=== PATIENT | male | born 1975 | race African-American/Black ===

== ENCOUNTER 2017-04-26 23:35 | Inpatient (IN) ==
[2017-04-27] MEDS ORDERED: ONDANSETRON 4 MG/2 ML VIAL IV STA (00:52)
[2017-04-27] MEDS ORDERED: MORPHINE 2 MG/1 ML SYRINGE IV STA (00:52)
[2017-04-27] MEDS ORDERED: ceFAZolin 2,000 MG in SODIUM CHLORIDE 0.9% 100 ML IV STA (00:53)
[2017-04-27] MEDS ORDERED: DIPH/TET/ACEL PERT BOOSTER VACCINE 0.5 ML VIAL IM ONE (00:54)
[2017-04-27] MEDS ORDERED: MORPHINE 2 MG/1 ML SYRINGE IV PRN (00:55)
[2017-04-27] MEDS ORDERED: ACETAMINOPHEN 325 MG TABLET PO PRN (00:55)
[2017-04-27] MEDS ORDERED: ONDANSETRON 4 MG/2 ML VIAL IV PRN (00:55)
[2017-04-27 01:28] LABS: Basophils % 0.2 % (0.0-0.8); Eosinophils % 0.1 % (0.00-10.9); Hematocrit 43.2 VOL% (42.0-52.0); Immature Granulocytes % 0.2 %; Immature Granulocytes Absolute 0.02 #; Lymphocytes # 1.1 10*3/uL (1.4-4.0); Lymphocytes % 12.7 % (21.2-54.2); Mean Corpuscular HGB Conc 34.7 GM/DL (32-36); Mean Corpuscular Hemoglobin 30 PG (27-34); Mean Corpuscular Volume 87.4 FL (87-102); Mean Platelet Volume 12.3 FL (9.6-12.0); Monocytes # 0.7 10*3/uL (0.11-0.8); Monocytes % 7.5 % (1.7-12.7); Neutrophils % 79.3 % (38.7-73.9); Platelet Count 166 T/CUMM (130-400); Red Blood Count 4.94 MC/CUMM (3.8-5.5); Red Cell Distribution Width 13.5 % (9.3-17.3); White Blood Count 8.8 T/CUMM (4-12)
[2017-04-27] MEDS ORDERED: MORPHINE 2 MG/1 ML SYRINGE ONE (01:36)
[2017-04-27] MEDS ORDERED: ONDANSETRON 4 MG/2 ML VIAL ONE (01:36)
[2017-04-27] MEDS ORDERED: ceFAZolin 1,000 MG VIAL ONE (01:37)
[2017-04-27 02:12] LABS: Albumin 4.2 G/DL (3.4-5.0); Bilirubin,Total 0.4 MG/DL (0.2-1.0); Calcium 8.7 MG/DL (8.5-10.1); Osmolality,Calculated 285.4 MOS/KG (273-304); Potassium 3.9 MMOL/L (3.5-5.1); Total Protein 7.6 G/DL (6.4-8.3)
[2017-04-27] MEDS: DEXTROSE 5% LACTATED RINGERS 1,000 ML IV SCH ×2 (03:18→13:47)
[2017-04-27] MEDS: CLINDAMYCIN INJ 900 MG in PREMIX 1 EACH IV SCH ×2 (08:27→13:47)
[2017-04-27] MEDS ORDERED: DEXTROSE 50% 25 GM/50 ML VIAL IV PRN ×2 (08:55)
[2017-04-27] MEDS ORDERED: GLUCAGON 1 MG VIAL IM PRN ×2 (08:55)
[2017-04-27] MEDS ORDERED: PANTOPRAZOLE 40 MG TABLET PO SCH (09:00)
[2017-04-27] MEDS ORDERED: PROPOFOL 200 MG/20 ML VIAL IV ONE (09:42)
[2017-04-27] MEDS ORDERED: MIDAZOLAM 2 MG/2 ML VIAL ONE (09:43)
[2017-04-27] MEDS ORDERED: fentaNYL 100 MCG/2 ML VIAL ONE (09:43)
[2017-04-27] MEDS ORDERED: SEVOFLURANE 1 UNIT/15 MINUTE INH ONE (09:43)
[2017-04-27] MEDS ORDERED: SODIUM CHLORIDE 0.9% 100 ML IV ONE (09:43)
[2017-04-27] MEDS: INSULIN LISPRO 100 UNIT/ML SUBCUT SCH ×2 (11:34→17:11)
[2017-04-27 14:33] VITALS: BP 142/61
== END 2017-04-27 18:00 | disposition home or self-care (01) | DRG 914 ==
LOC: EDUNIT# → EDBD → N.ED 23:35 → N.EDINP 04-27 00:55 → N.3E 04-27 02:12
PROVIDERS: ADMIT Surgery; ATTEND Surgery

== ENCOUNTER 2020-01-07 23:04 | Observation (INO) ==
[2020-01-07] MEDS ORDERED: ONDANSETRON 4 MG/2 ML VIAL IV STA (23:31)
[2020-01-07] MEDS ORDERED: NITROGLYCERIN 2% OINT 1 INCH/GM PACK TOP STA (23:31)
[2020-01-07] MEDS ORDERED: ALUM/MAG/SIMETH/LIDO VISC 1:1 30 ML BOTTLE PO STA (23:31)
[2020-01-07] MEDS ORDERED: MORPHINE 4 MG/1 ML VIAL IV STA (23:31)
[2020-01-07] MEDS ORDERED: ASPIRIN 325 MG TABLET PO STA (23:31)
[2020-01-07] MEDS ORDERED: METOPROLOL TARTRATE 25 MG TABLET PO STA (23:31)
[2020-01-07 23:35] LABS: Basophils % 0.2 % (0.0-0.8); Eosinophils % 0.2 % (0.00-10.9); Hemoglobin 14.2 GM/DL (14.0-18.0); Immature Granulocytes % 0.6 %; Immature Granulocytes Absolute 0.04 #; Lymphocytes # 1.6 10*3/uL (1.4-4.0); Lymphocytes % 26.4 % (21.2-54.2); Mean Corpuscular HGB Conc 34.6 GM/DL (32-36); Mean Corpuscular Volume 86.1 FL (87-102); Monocytes % 8.3 % (1.7-12.7); Neutrophils % 64.3 % (38.7-73.9); Platelet Count 205 T/CUMM (130-400); Red Blood Count 4.76 MC/CUMM (3.8-5.5); White Blood Count 6.2 T/CUMM (4-12)
[2020-01-08 00:03] LABS: Alanine Aminotransferase 18 U/L (16-61); Albumin 4.2 G/DL (3.4-5.0); Alkaline Phosphatase 56 U/L (45-117); Aspartate Amino Transferase 12 U/L (0-37); Bilirubin,Total < 0.39 MG/DL (0.2-1.0); Blood Urea Nitrogen 17 MG/DL (7-18); Calcium 9.1 MG/DL (8.5-10.1); Estimated Glom Filtration Rate 130 ML/MIN; Glucose 145 MG/DL (74-106); Osmolality,Calculated 281.5 MOS/KG (273-304); Total Protein 7.7 G/DL (6.4-8.3)
[2020-01-08] MEDS ORDERED: ONDANSETRON 4 MG/2 ML VIAL IV PRN (01:22)
[2020-01-08] MEDS ORDERED: ALUMINUM/MAGNES/SIMETH MAX STR 30 ML UDCUP PO PRN (01:22)
[2020-01-08] MEDS ORDERED: ACETAMINOPHEN 325 MG TABLET PO PRN (01:22)
[2020-01-08] MEDS ORDERED: MORPHINE 4 MG/1 ML VIAL IV PRN (01:22)
[2020-01-08] MEDS ORDERED: DEXTROSE 50% 25 GM/50 ML VIAL IV PRN (01:22)
[2020-01-08] MEDS ORDERED: diphenhydrAMINE CAP 25 MG CAPSULE PO PRN (01:22)
[2020-01-08] MEDS ORDERED: guaiFENesin/DM ER 600-30 MG TABLET PO PRN (01:22)
[2020-01-08] MEDS ORDERED: NICOTINE 21 MG/24 HR PATCH TRANSDERM PRN (01:22)
[2020-01-08] MEDS ORDERED: hydrALAZINE 20 MG/1 ML VIAL IV PRN (01:22)
[2020-01-08] MEDS ORDERED: GLUCAGON 1 MG VIAL IM PRN (01:22)
[2020-01-08 01:58] LABS: Risk Ratio 4.15; Thyroid Stimulating Hormone 1.02 uIU/ml (0.358-3.74); VLDL CHOLESTEROL 28.2 MG/DL
[2020-01-08 06:25] LABS: Bilirubin,Urine Negative (Negative); Blood, Urine Negative (Negative); Glucose,Urine (UA) 150 mg/dL (Negative); Ketones,Urine 5 mg/dL (Negative); Mucus,Urine Moderate /LPF (Occasional); Nitrite,Urine Negative (Negative); Protein,Urine Negative; RBC,Urine 1 /HPF (0-4); Urine Appearance CLEAR (Clear); Urine Color Yellow (Yellow); Urine Specific Gravity 1.028 (1.001-1.035); WBC,Urine 1 /HPF (0-6)
[2020-01-08 07:09] LABS: Barbiturates Screen,Urine Negative (Negative); Benzodiazepines Screen,Urine Negative (Negative); Cannabinoid Screen,Urine Negative (Negative); Opiate Screen,Urine Positive (Negative); Phencyclidine Screen,Urine Negative (Negative)
[2020-01-08] MEDS ORDERED: PANTOPRAZOLE 40 MG TABLET PO SCH (09:00)
[2020-01-08] MEDS ORDERED: ASPIRIN EC 81 MG TABLET PO SCH (09:00)
[2020-01-08] MEDS: INSULIN REGULAR 100 UNIT/ML SUBCUT SCH ×2 (10:03→12:03)
[2020-01-08] MEDS: METOPROLOL SUCCINATE XL 25 MG TABLET PO SCH ×2 (10:04→11:09)
[2020-01-08] MEDS ORDERED: POTASSIUM CHLORIDE 20 MEQ TABLET PO ONE (11:30)
[2020-01-08] MEDS ORDERED: MAGNESIUM SULF RIDER 2 GM in PREMIX 1 EACH IV ONE (11:30)
[2020-01-08 12:07] VITALS: BP 114/83
[2020-01-08] MEDS ORDERED: ROSUVASTATIN 20 MG TABLET PO SCH (21:00)
[2020-01-09] MEDS ORDERED: GLIMEPIRIDE 4 MG TABLET PO SCH (09:00)
== END 2020-01-08 16:02 | disposition home or self-care (01) ==
LOC: N.EDINP 23:04 → N.ED 23:04 → N.EDINP 01-08 03:14 → N.3E 01-08 03:43
PROVIDERS: ADMIT Internal Medicine Geriatric Medicine; ATTEND Internal Medicine Geriatric Medicine

== ENCOUNTER 2020-04-04 15:16 | Observation (INO) ==
[2020-04-04 15:56] LABS: Basophils % 0.3 % (0.0-0.8); Eosinophils % 0.3 % (0.00-10.9); Hematocrit 42.4 VOL% (42.0-52.0); Hemoglobin 14.3 GM/DL (14.0-18.0); Immature Granulocytes % 0.3 %; Immature Granulocytes Absolute 0.01 #; Lymphocytes # 0.9 10*3/uL (1.4-4.0); Lymphocytes % 24.9 % (21.2-54.2); Mean Corpuscular HGB Conc 33.7 GM/DL (32-36); Mean Corpuscular Volume 89.1 FL (87-102); Monocytes % 10.6 % (1.7-12.7); Neutrophils % 63.6 % (38.7-73.9); Platelet Count 210 T/CUMM (130-400); Red Blood Count 4.76 MC/CUMM (3.8-5.5); Red Cell Distribution Width 12.9 % (9.3-17.3); White Blood Count 3.5 T/CUMM (4-12)
[2020-04-04 16:17] LABS: Albumin 3.9 G/DL (3.4-5.0); Bilirubin,Total 0.4 MG/DL (0.2-1.0); Calcium 8.4 MG/DL (8.5-10.1); Osmolality,Calculated 273.8 MOS/KG (273-304); Total Protein 7.4 G/DL (6.4-8.3)
[2020-04-04] MEDS ORDERED: NITROGLYCERIN SL 0.4 MG TABLET SL PRN (16:43)
[2020-04-04 17:17] LABS: Partial Thromboplastin Time 31.9 SECS (23.9-33.8)
[2020-04-04] MEDS ORDERED: ACETAMINOPHEN 325 MG TABLET PO PRN (18:29)
[2020-04-04] MEDS ORDERED: ONDANSETRON 4 MG/2 ML VIAL IV PRN (18:29)
[2020-04-04] MEDS ORDERED: DEXTROSE 50% 25 GM/50 ML VIAL IV PRN (18:29)
[2020-04-04] MEDS ORDERED: GLUCAGON 1 MG VIAL IM PRN (18:29)
[2020-04-04] MEDS ORDERED: ENOXAPARIN 40 MG/0.4 ML SYRINGE SUBCUT SCH (18:30)
[2020-04-04 19:15] LABS: Barbiturates Screen,Urine Negative (Negative); Benzodiazepines Screen,Urine Negative (Negative); Cannabinoid Screen,Urine Negative (Negative); Opiate Screen,Urine Negative (Negative); Phencyclidine Screen,Urine Negative (Negative)
[2020-04-05 05:20] LABS: Basophils % 0.6 % (0.0-0.8); Eosinophils % 0.6 % (0.00-10.9); Hemoglobin 14.3 GM/DL (14.0-18.0); Immature Granulocytes % 0.3 %; Immature Granulocytes Absolute 0.01 #; Lymphocytes # 1.4 10*3/uL (1.4-4.0); Lymphocytes % 37.7 % (21.2-54.2); Mean Corpuscular HGB Conc 34.9 GM/DL (32-36); Mean Corpuscular Volume 87.6 FL (87-102); Mean Platelet Volume 12.3 FL (9.6-12.0); Monocytes % 12.9 % (1.7-12.7); Neutrophils % 47.9 % (38.7-73.9); Platelet Count 198 T/CUMM (130-400); Red Blood Count 4.68 MC/CUMM (3.8-5.5); Red Cell Distribution Width 13.1 % (9.3-17.3); White Blood Count 3.6 T/CUMM (4-12)
[2020-04-05 05:35] LABS: Calcium 8.5 MG/DL (8.5-10.1); Osmolality,Calculated 279.7 MOS/KG (273-304)
[2020-04-05 09:30] VITALS: BP 116/77
== END 2020-04-05 12:12 | disposition home or self-care (01) ==
LOC: N.EDINP 15:16 → N.ED 15:16 → SUATTDRO 18:29 → N.EDINP 21:39 → N.TELEN 22:10
PROVIDERS: ADMIT Internal Medicine; ATTEND Phlebology